=== PATIENT | female | born 1960 | race Two or more races ===

== ENCOUNTER 2024-12-23 21:01 | Emergency (ER) | payer OTHER ==
[~2024-12-23] VITALS: Ht 157.5 cm; Wt 54.4 kg
[~2024-12-23 21:01] MED LIST: KETO10TA2 PO
[2024-12-24] MEDS ORDERED: DICLOFENAC SODI75 MG PO (01:25)
== END 2024-12-24 01:34 | disposition home or self-care (01) ==
LOC: ER 21:01
DX: S09.8XXA Other specified injuries of head, initial encounter (principal); S09.93XA Unspecified injury of face, initial encounter; X58.XXXA Exposure to other specified factors, initial encounter; Y93.89 Activity, other specified; Y92.89 Other specified places as the place of occurrence of the external cause; Y99.8 Other external cause status